=== PATIENT | female | born 1990 | race Caucasian/White ===

== ENCOUNTER 2022-07-19 21:57 | Emergency (ER) | payer OTHER, BC ==
[2022-07-19] MEDS ORDERED: Morphine 4 MG/ML VIAL IM ONE (23:19)
[2022-07-20] MEDS: Sodium Chloride 0.9% 10 ML Syringe FLUSH PRN ×2 (01:45→02:31)
[2022-07-20 01:54] LABS: ESTIMATED GFR 102 mL/min (>60)
[2022-07-20] MEDS ORDERED: Morphine 2 MG/ML SYRINGE IVPUSH ONE (01:57)
== END 2022-07-20 02:45 ==
LOC: FB.ED 21:57
DX: S12.300A Unspecified displaced fracture of fourth cervical vertebra, initial encounter for closed fracture (principal); Z88.2 Allergy status to sulfonamides; V48.9XXA Unspecified car occupant injured in noncollision transport accident in traffic accident, initial encounter; Y92.410 Unspecified street and highway as the place of occurrence of the external cause
CPT/HCPCS: 36415; 70450; 72072; 72100; 72125; 73030-LT; 80053; 80307; 85025; 85610; 85730; 96372; 96374; 99284-25; 99285; J2270; J3490